=== PATIENT | female | born 1930 | race Caucasian/White ===

== ENCOUNTER 2017-02-22 07:38 | Emergency (ER) | payer MEDICARE, OTHER ==
[2017-02-22] MEDS ORDERED: Morphine 2 MG/ML Syringe IVPUSH ONE ×2 (08:03→09:25)
[2017-02-22] MEDS ORDERED: Sodium Chloride 0.9% 10 ML Syringe FLUSH PRN (08:03)
[2017-02-22 08:39] LABS: CHLORIDE,CL 107 mmol/L (98-107); SODIUM,NA 146 mmol/L (136-145)
[2017-02-22 08:54] VITALS: BP 133/65
--- NOTE | 2017-02-22 08:58 | EDM.PDOC ---
ED HPI GENERAL MEDICAL PROBLEM - General Chief Complaint: Abdominal Pain Stated Complaint: ADOMINAL PAIN Time Seen by Provider: 02/22/17 07:50 Source of Information: Reports: Patient History Limitations: Reports: No Limitations - History of Present Illness INITIAL COMMENTS - FREE TEXT/NARRATIVE: patient brought in by her sister with increase in abdominal pain over the last week. she was recently diagnosed with uterine cancer and underwent a hysterectomy december 23, 2016. she then had a buildup of fluid in which a paracentesis was performed they think about 3 weeks ago. she has been taking oxycodone for the pain but it does not seem to be helping. She is currently not undergoing any further treatment for the cancer. denies fever, chills, nausea, vomiting, SOB, chest pain, dizziness. she does struggle with constipation and last stool was yesterday. no changes with urine. Onset Date: 02/15/17 Location: Reports: Abdomen (left lower quadrant. ) Quality: Reports: Ache, Sharp Severity: Severe Improves with: Reports: None Worsens with: Reports: None Associated Symptoms: Reports: No Other Symptoms Treatments [employer]: Reports: Other (see below) (oxycodone) Lower Abdomen Pain Score (Numeric/FACES): 10 - Related Data Allergies Allergy/AdvReac Type Severity Reaction Status Date / Time Penicillins Allergy Rash Verified 02/22/17 08:08 Home Meds: Home Meds Acyclovir/Hydrocortisone [Xerese 5%-1%] 1 gm TP BID PRN #1 tube 03/28/16 [Rx] Aspirin 81 mg PO BRK 03/28/16 [History] Calcium Carbonate/Vitamin D3 [Os-Sherwin 500+D] 1 each PO Q7D 03/28/16 [History] Cholecalciferol (Vitamin D3) [Vitamin D3] 2,000 unit PO DAILY 03/28/16 [History] Glucosamine [Glucosamine Sulfate] 750 mg PO Q48H 03/28/16 [History] Latanoprost 2.5 ml EYEBOTH DAILY 03/28/16 [History] Lisinopril [Prinivil] 10 mg PO DAILY 03/28/16 [History] Multivitamin [Multi-Day Vitamins] 1 tab PO DAILY 03/28/16 [History] Raloxifene [Evista] 60 mg PO DAILY 03/28/16 [History] Simvastatin [Simvastatin] 20 mg PO DAILY 03/28/16 [History] Past Medical History Cardiovascular History: Reports: High Cholesterol, Hypertension Social & Family History - Tobacco Use Smoking Status *Q: Never Smoker ED ROS GENERAL - Review of Systems Review Of Systems: ROS reveals no pertinent complaints other than HPI. ED EXAM, GI/ABD - Physical Exam Exam: See Below Exam Limited By: No Limitations General Appearance: Alert, WD/WN Respiratory/Chest: No Respiratory Distress, Lungs Clear, Normal Breath Sounds, No Accessory Muscle Use Cardiovascular: Regular Rate, Rhythm, No Edema GI/Abdominal Exam: Normal Bowel Sounds, Soft, No Distention, No Mass, Tender ( lower quadrants) Course - Vital Signs Last Recorded V/S: Last Vital Signs Temp 36.8 C 02/22/17 07:40 Pulse 74 02/22/17 07:40 Resp 18 02/22/17 07:40 BP 133/65 02/22/17 07:40 Pulse Ox 95 02/22/17 07:40 - Orders/Labs/Meds Orders: Active Orders 24 hr Category Date Time Status Pelvis Non OB Comp [US] Stat Exams 02/22/17 08:30 Taken Sodium Chloride 0.9% [Saline Flush] Med 02/22/17 08:03 Active 10 ml FLUSH ASDIRECTED PRN Saline Lock Insert [OM.PC] Routine Oth 02/22/17 08:03 Ordered Medication Orders Sodium Chloride (Saline Flush) 10 ml FLUSH ASDIRECTED PRN PRN Reason: Keep Vein Open Labs: Laboratory Tests 02/22/17 02/22/17 02/22/17 Range/Units 08:14 08:14 08:27 WBC 22.2 H* (4.0-10.0) x10^3/uL RBC 2.60 L (4.00-5.50) x10^6/uL Hgb 8.4 L (12.0-16.0) g/dL Hct 25.3 L (33.0-47.0) % MCV 97.3 H (78.0-93.0) fL MCH 32.3 H (26.0-32.0) pg MCHC 33.2 (32.0-36.0) g/dL RDW Coeff of Erna 16.9 H (10.0-15.0) % Plt Count 743 H (130-400) x10^3/uL Add Manual Diff Yes Neutrophils % (Manual) 85 H (50-80) % Band Neutrophils % 5 (0-6) % Lymphocytes % (Manual) 5 L (25-50) % Monocytes % (Manual) 3 (2-11) % Eosinophils % (Manual) 2 (0-4) % Platelet Estimate Increased H Sodium 146 H (136-145) mmol/L Potassium 2.4 L* (3.5-5.1) mmol/L Chloride 107 (98-107) mmol/L Carbon Dioxide 29 (21-32) mmol/L BUN 19 H (7-18) mg/dL Creatinine 0.9 (0.55-1.02) mg/dL Est Cr Clr Drug Dosing TNP Estimated GFR (MDRD) 59 Glucose 104 (74-106) mg/dL Lactic Acid (0.4-2.0) mmol/L Calcium 8.1 L (8.5-10.1) mg/dL Corrected Calcium 9.54 (8.5-10.1) mg/dL Total Bilirubin 0.7 (0.2-1.0) mg/dL AST 44 H (15-37) U/L ALT 34 (14-59) U/L Alkaline Phosphatase 97 (46-116) U/L Total Protein 6.1 L (6.4-8.2) g/dL Albumin 2.2 L (3.4-5.0) g/dL Globulin 3.9 Albumin/Globulin Ratio 0.56 Urine Color Yellow (YELLOW) Urine Appearance Slightly cloudy H (CLEAR) Urine pH 6.0 (5.0-8.0) Ur Specific Stevenson 1.015 Urine Protein 100 H (NEGATIVE) mg/dL Urine Glucose (UA) Negative (NEGATIVE) mg/dL Urine Ketones Trace H (NEGATIVE) mg/dL Urine Occult Blood Moderate H (NEGATIVE) Urine Nitrite Negative (NEGATIVE) Urine Bilirubin Small H (NEGATIVE) Urine Urobilinogen 1.0 (0.2) EU/dL Ur Leukocyte Esterase Negative (NEGATIVE) Urine RBC 40-50 H (NOT SEEN) /HPF Urine WBC 0-5 (NOT SEEN) /HPF Ur Squamous Epith Cells Many H (NEGATIVE) /HPF Urine Bacteria Not seen (NEGATIVE) /HPF Granular Casts Rare H (NEGATIVE) /HPF Urine Mucus Rare H (NEGATIVE) /LPF 02/22/17 Range/Units 08:53 WBC (4.0-10.0) x10^3/uL RBC (4.00-5.50) x10^6/uL Hgb (12.0-16.0) g/dL Hct (33.0-47.0) % MCV (78.0-93.0) fL MCH (26.0-32.0) pg MCHC (32.0-36.0) g/dL RDW Coeff of Erna (10.0-15.0) % Plt Count (130-400) x10^3/uL Add Manual Diff Neutrophils % (Manual) (50-80) % Band Neutrophils % (0-6) % Lymphocytes % (Manual) (25-50) % Monocytes % (Manual) (2-11) % Eosinophils % (Manual) (0-4) % Platelet Estimate Sodium (136-145) mmol/L Potassium (3.5-5.1) mmol/L Chloride (98-107) mmol/L Carbon Dioxide (21-32) mmol/L BUN (7-18) mg/dL Creatinine (0.55-1.02) mg/dL Est Cr Clr Drug Dosing Estimated GFR (MDRD) Glucose (74-106) mg/dL Lactic Acid 1.2 (0.4-2.0) mmol/L Calcium (8.5-10.1) mg/dL Corrected Calcium (8.5-10.1) mg/dL Total Bilirubin (0.2-1.0) mg/dL AST (15-37) U/L ALT (14-59) U/L Alkaline Phosphatase (46-116) U/L Total Protein (6.4-8.2) g/dL Albumin (3.4-5.0) g/dL Globulin Albumin/Globulin Ratio Urine Color (YELLOW) Urine Appearance (CLEAR) Urine pH (5.0-8.0) Ur Specific Stevenson Urine Protein (NEGATIVE) mg/dL Urine Glucose (UA) (NEGATIVE) mg/dL Urine Ketones (NEGATIVE) mg/dL Urine Occult Blood (NEGATIVE) Urine Nitrite (NEGATIVE) Urine Bilirubin (NEGATIVE) Urine Urobilinogen (0.2) EU/dL Ur Leukocyte Esterase (NEGATIVE) Urine RBC (NOT SEEN) /HPF Urine WBC (NOT SEEN) /HPF Ur Squamous Epith Cells (NEGATIVE) /HPF Urine Bacteria (NEGATIVE) /HPF Granular Casts (NEGATIVE) /HPF Urine Mucus (NEGATIVE) /LPF Meds: Medications Generic Name Dose Route Start Last Admin Trade Name Freq PRN Reason Stop Dose Admin Sodium Chloride 10 ml 02/22/17 08:03 Saline Flush FLUSH ASDIRECTED PRN Keep Vein Open Discontinued Medications Generic Name Dose Route Start Last Admin Trade Name Freq PRN Reason Stop Dose Admin Morphine Sulfate 2 mg 02/22/17 08:03 02/22/17 08:14 Morphine IVPUSH 02/22/17 08:04 2 mg ONETIME ONE Administration Morphine Sulfate 2 mg 02/22/17 09:25 02/22/17 09:52 Morphine IVPUSH 02/22/17 09:26 2 mg ONETIME ONE Administration Morphine Sulfate 4 mg 02/22/17 10:37 02/22/17 11:03 Morphine IVPUSH 02/22/17 10:38 4 mg ONETIME ONE Administration Departure - Departure Time of Disposition: 13:30 Disposition: DC/Tfer to Acute Hospital 02 Condition: Fair Clinical Impression: Abdominal pain, Abdominal abscess, Uterine cancer - Discharge Information Instructions: Abdominal Pain, Adult, [id number] Forms: ED Department Discharge, Interfacility Transfer EMTALA - Problem List & Annotations (1) Abdominal abscess SNOMED Code(s): 57687269 Code(s): K65.1 - PERITONEAL ABSCESS Status: Acute Priority: Medium Current Visit: Yes (2) Abdominal pain SNOMED Code(s): 72949446 Code(s): R10.9 - UNSPECIFIED ABDOMINAL PAIN Status: Acute Priority: Medium Current Visit: Yes Qualifiers: Abdominal location: left lower quadrant Qualified Code(s): R10.32 - Left lower quadrant pain - My Orders Last 24 Hours: My Active Orders 02/22/17 08:03 Sodium Chloride 0.9% [Saline Flush] 10 ml FLUSH ASDIRECTED PRN Saline Lock Insert [OM.PC] Routine 02/22/17 08:30 Pelvis Non OB Comp [US] Stat - Assessment/Plan Last 24 Hours: My Active Orders 02/22/17 08:03 Sodium Chloride 0.9% [Saline Flush] 10 ml FLUSH ASDIRECTED PRN Saline Lock Insert [OM.PC] Routine 02/22/17 08:30 Pelvis Non OB Comp [US] Stat Plan: transfer patient to [facility] in [place]. Patient is stable and prefers to transfer via private vehicle.
[2017-02-22] MEDS ORDERED: Morphine 4 MG/ML Syringe IVPUSH ONE (10:37)
== END 2017-02-22 13:42 | disposition short-term general hospital (02) ==
LOC: VM.ED 07:38
DX: K65.1 Peritoneal abscess (principal); I10 Essential (primary) hypertension; E78.00 Pure hypercholesterolemia, unspecified; Z85.42 Personal history of malignant neoplasm of other parts of uterus; Z88.0 Allergy status to penicillin; Z79.82 Long term (current) use of aspirin; Z79.84 Long term (current) use of oral hypoglycemic drugs; Z79.899 Other long term (current) drug therapy
CPT/HCPCS: 36415; 76856; 80053; 81001; 83605; 85025; 96374; 96376; 99284; 99285; J2270